=== PATIENT | male | born 1960 | race Caucasian/White ===

== ENCOUNTER 2019-03-28 09:18 | Emergency (ER) | payer BC ==
[~2019-03-28] VITALS: Ht 190.5 cm; Wt 127.0 kg
[2019-03-28 09:18] VITALS: BP_SYST 159
--- NOTE | 2019-03-28 09:20 | NUR ---
BROUGHT BACK TO BED #8 AND TRIAGED. REPORT GIVEN TO EZ
--- NOTE | 2019-03-28 09:24 | NUR ---
PATIENT CAME IN COMPLAINING OF PAIN IN MOUTH 03/15. PATIENT STATES HE HAD TOOTH EXTRACTED YESTERDAY AT [facility]. PATIENT'S LEFT SIDE OF JAW TO MIDDLE OF JAW SWOLLEN. PATIENT STATES HE TAKES NORCO FOR PAIN BUT FOR CHRONIC NECK AND BACK PAIN. PATIENT STATES HE CANT SLEEP. PATIENT NOT COMPLAINING OF DIFFICULTIES SWALLOWING. PATIENT NOT COMPLAINING OF SOB. PATIENT ALERT AND ORIENTED X4.
--- NOTE | 2019-03-28 09:55 | NUR ---
ER Dr. MICHAELS at bedside examining patient.
[2019-03-28] MEDS ORDERED: NACL 0.9% 1,000 ML IV ONE (10:00)
[2019-03-28] MEDS ORDERED: CLINDAMYCIN 600 mg/50mL D5W 50 ML IV ONE (10:00)
--- NOTE | 2019-03-28 10:10 | NUR ---
# 20 gauge angiocath placed to RIGHT AC. Use of asceptic technique. Opsite placed over site. Blood return noted. Blood for lab drawn from site. Flushed with 10 cc of normal saline. No evidence of infiltration noted. Patient tolerated well.
--- NOTE | 2019-03-28 10:24 | NUR ---
Note undone in EDM - 03/28/19 at 1024 by HERVE # 20 gauge angiocath placed to RIGHT AC. Use of asceptic technique. Opsite placed over site. Blood return noted. Blood for lab drawn from site. Flushed with 10 cc of normal saline. No evidence of infiltration noted. Patient tolerated well.
[2019-03-28 10:28] LABS: BASOPHILS % (AUTO) 0.4 % (0.0-2.0); EOSINOPHILS % (AUTO) 0.2 % (0.0-4.0); HEMATOCRIT 45.1 % (36-54); HEMOGLOBIN 15.3 g/dL (14.0-18.0); LYMPHOCYTES # (AUTO) 0.7 K/uL (1.0-5.5); LYMPHOCYTES % (AUTO) 7.3 % (20.5-51.5); MEAN CORPUSCULAR HEMOGLOBIN 29 pg (27-31); MEAN CORPUSCULAR HGB CONC 34 % (32-36); MEAN CORPUSCULAR VOLUME 87 fL (79.0-98.0); MONOCYTES # (AUTO) 0.9 K/uL (0.0-1.0); MONOCYTES % (AUTO) 9.6 % (1.7-9.3); NEUTROPHILS # (AUTO) 7.4 K/uL (1.8-7.7); NEUTROPHILS % (AUTO) 82.5 % (40.0-70.0); PLATELET COUNT (AUTO) 220 K/uL (130-430); RED BLOOD CELL COUNT(AUTO) 5.22 MIL/uL (4.2-6.2); RED CELL DISTRIBUTION WIDTH 14.1 % (9.0-15.0)
[2019-03-28 10:34] LABS: CALCIUM 9.1 mg/dL (8.4-11.0); CREATININE 1.01 mg/dL (0.55-1.30); POTASSIUM 3.8 mmol/L (3.5-5.1)
--- NOTE | 2019-03-28 10:50 | NUR ---
PATIENT LEFT TO CT VIA WHEEL CHAIR IN STABLE CONDITION.
[2019-03-28] MEDS ORDERED: IOHEXOL 100 ML IV ONE (11:04)
--- NOTE | 2019-03-28 11:08 | NUR ---
PATIENT BACK FROM CT IN STABLE CONDITION.
--- NOTE | 2019-03-28 11:35 | NUR ---
Pt is laying gurney in lowest position. Pt has no s/s of distress. Will continue to monitor.
[2019-03-28] MEDS ORDERED: DEXAMETHASONE SOD PHOSPHATE 10 MG/ML VIAL IVP ONE (12:45)
--- NOTE | 2019-03-28 13:22 | NUR ---
Patient given written and verbal discharge instructions and verbalizes understanding. ER MD discussed with patient the results and treatment provided. Patient in stable condition. ID arm band removed. IV catheter removed intact and dressing applied, no active bleeding. Rx of NAPROSYN AND CLINDAMYCIN given. Patient educated on pain management and to follow up with PMD. Pain Scale 3/10 TOLERABLE. Opportunity for questions provided and answered. Medication side effect fact sheet provided.
[2019-03-28 13:24] VITALS: BP_SYST 159
== END 2019-03-28 13:22 | disposition home or self-care (01) ==
LOC: SED 09:18
DX: G89.18 Other acute postprocedural pain (principal)
CPT/HCPCS: 36415; 70487; 80048; 85025; 96365; 99284; J1100; J3490; J7030; Q9967; 96375; 99283